=== PATIENT | male | born 1985 | race Caucasian/White ===

== ENCOUNTER 2017-04-28 14:40 | Emergency (ER) | payer SELFPAY ==
[~2017-04-28] VITALS: Ht 167.6 cm; Wt 67.8 kg
[2017-04-28 14:45] VITALS: BP 122/72; PULSE 70; RESP 16; TEMP 98.1; O2SAT 100
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
[2017-04-28] MEDS ORDERED: SODIUM CHLORIDE 0.9% FLUSH 10 ML FLUSH IV FLUSH PRN (15:45)
[2017-04-28] MEDS ORDERED: cefTRIAXone INJ 1,000 MG in SODIUM CHLORIDE 0.9% INJ 100 ML IV ONE (15:45)
[2017-04-28] MEDS ORDERED: metroNIDAZOLE 500 MG INJ 100 ML IV ONE (15:45)
[2017-04-28] MEDS ORDERED: TETANUS/DIPHTHERIA TOXOID ADULT 0.5 ML VIAL IM ONE (15:45)
[2017-04-28 15:50] VITALS: O2SAT 98
[2017-04-28 15:55] LABS: AUTOMATED NEUTROPHIL # 12.2 TH/MM3 (1.8-7.7); BASOPHIL # 0.5 TH/MM3 (0-0.2); BASOPHIL % 3.1 % (0.0-2.0); EOSINOPHIL # 0.1 TH/MM3 (0-0.4); EOSINOPHIL % 0.5 % (0.0-4.0); HEMATOCRIT 44.4 % (39.0-51.0); LYMPH % 6.8 % (9.0-44.0); MEAN CELL VOLUME 84.1 FL (80.0-100.0); MEAN CORPUSCULAR HEMOGLOBIN 28.3 PG (27.0-34.0); MEAN CORPUSCULAR HGB CONC 33.6 % (32.0-36.0); NEUT % 82.6 % (16.0-70.0); PLATELET COUNT 272 TH/MM3 (150-450); RED BLOOD COUNT 5.28 MIL/MM3 (4.50-5.90); RED CELL DISTRIBUTION WIDTH 11.8 % (11.6-17.2); WHITE BLOOD COUNT 14.8 TH/MM3 (4.0-11.0)
[2017-04-28 15:56] LABS: HEMO FLAGS DIFF FINAL
[2017-04-28] MEDS ORDERED: DIATRIZOATE MEGLUM/DIATRIZOATE SOD 9 ML CUP ONE (15:59)
[2017-04-28 16:06] LABS: CHLORIDE 105 MEQ/L (98-107); POTASSIUM 4.3 MEQ/L (3.5-5.1); SODIUM (NA) 139 MEQ/L (136-145)
[2017-04-28 16:09] LABS: ANION GAP 6 MEQ/L (5-15); BICARBONATE 27.8 MEQ/L (21.0-32.0)
[2017-04-28 16:10] LABS: BLOOD UREA NITROGEN 26 MG/DL (7-18)
[2017-04-28 16:12] LABS: ALT (GPT) 27 U/L (12-78)
[2017-04-28 16:13] LABS: AST (GOT) 21 U/L (15-37); GLOMERULAR FILTRATION RATE 59 ML/MIN (>89)
[2017-04-28 16:14] LABS: PROTHROMBIN TIME - PATIENT 11.3 SEC (9.8-11.6); TOTAL BILIRUBIN ADULT 0.4 MG/DL (0.2-1.0)
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
[2017-04-28 16:15] LABS: ALKALINE PHOSPHATASE 69 U/L (45-117)
[2017-04-28] MEDS ORDERED: IOHEXOL 350 MG/ML 10 ML VIAL (for RAD DIAG) IV ONE (17:30)
[2017-04-28] MEDS ORDERED: LIDOCAINE 1%/EPINEPHrine 1:100,000 SOLN 20 ML VIAL INFIL ONE (17:45)
--- NOTE | 2017-04-28 17:52 | RADRPT ---
EXAM DATE/TIME: 04/28/2017 17:14 [place] COMPARISON: No previous studies available for comparison. INDICATIONS : Right lower quadrant laceration. IV CONTRAST: 85 cc Omnipaque 350 (iohexol) IV ORAL CONTRAST: Partial prescribed oral contrast ingested. RADIATION DOSE: 6.20 CTDIvol (mGy) MEDICAL HISTORY : None SURGICAL HISTORY : None. ENCOUNTER: Initial ACUITY: 1 day PAIN SCALE: 7/10 LOCATION: Right lower quadrant TECHNIQUE: Volumetric scanning of the abdomen and pelvis was performed. Using automated exposure control and ad justment of the mA and/or kV according to patient size, radiation dose was kept as low as reasonably achievable to obtain optimal diagnostic quality images. DICOM format image data is available electro nically for review and comparison. FINDINGS: There is a laceration in the soft tissues of the lower right anterior abdominal wall. Lung bases clear. No acute findings within the liver, spleen, adrenals, kidneys or pancreas. No free fluid. No bowel obstruction. No adenopathy. Gallbladder unremarkable. Appendix normal. No pelvic mass es. No free fluid. No adenopathy. CONCLUSION: 1. Superficial laceration in the lower anterior abdominal wall. No intra-abdominal injury identified. Rex Marks MD on April 28, 2017 at 17:47 Board Certified Radiologist. This report was verified electronically.
[2017-04-28 18:06] VITALS: BP 107/60; PULSE 86; RESP 16; O2SAT 99
== END 2017-04-28 18:48 | disposition home or self-care (01) ==
LOC: PHEFT 14:40 → PHED 18:48
DX: S31.113A Laceration without foreign body of abdominal wall, right lower quadrant without penetration into peritoneal cavity, initial encounter (principal); W31.1XXA Contact with metalworking machines, initial encounter; Y93.89 Activity, other specified; Z23 Encounter for immunization
CPT/HCPCS: 12032; 74177; 80053; 85025; 85610; 85730; 86850; 86900; 86901; 90471; 90714; 96365; 96367; 99285; J0696; Q9963; Q9967